=== PATIENT | male | born 1980 | race Caucasian/White ===

== ENCOUNTER 2017-10-27 13:13 | Outpatient (CLI) | payer OTHER ==
--- NOTE | 2017-10-30 12:38 | STRESS ---
Acquisition Time: 2017-10-27 13:59:07 Total Exercise Time: 00:11:00 Test Indications: HTN/DYSLIPIDEMIA/FAM HX CAD Medications: Protocol: NETTA Max HR: 169 BPM 92% of Pred: 182 BPM Max BP: 158/076 mmHG Max Work Load: 13.4 METS RESTING ECG: NORMAL SINUS RHYTHM AT 68 BPM WITH EARLY REPOLARIZATION SYMPTOMS: NONE NORMAL BP RESPONSE ECTOPY: NONE ECG STRESS: NO SIGNIFICANT CHANGES INTERPRETATION: NEGATIVE GXT Confirmed by TERRELL BOLAND ELLEN ([id number]) on 10/30/2017 12:38:11 PM Referred By: MD Carley CAICEDO Confirmed By:LIANE BOLAND PA-C
== END 2017-10-27 13:14 | disposition home or self-care (01) ==
PROVIDERS: ATTEND Family Medicine
DX: E78.5 Hyperlipidemia, unspecified (principal); I10 Essential (primary) hypertension; Z82.49 Family history of ischemic heart disease and other diseases of the circulatory system
CPT/HCPCS: 93017